=== PATIENT | female | born 1970 | race African-American/Black ===

== ENCOUNTER 2021-11-10 16:27 | Inpatient (IN) | payer OTHER ==
[~2021-11-10] VITALS: Ht 304.8 cm; Wt 37.2 kg
[2021-11-10 18:26] LABS: BASOPHILS % 0.4 % (0.0-2.0); EOSINOPHILS % 0.1 % (0.0-5.0); LYMPHOCYTES % 22.8 % (20.0-50.0); MEAN CORPUSCULAR HEMOGLOBIN 26.5 pg (28.0-32.0); MEAN CORPUSCULAR VOLUME 79.6 fL (81.0-99.0); MEAN PLATELET VOLUME 8.8 fl (7.4-10.4); MONOCYTES % 8.9 % (2.0-8.0); NEUTROPHILS % 67.8 % (40.0-76.0); PLATELET 240 x1000/uL (130-400); RED BLOOD CELL COUNT 2.03 mill/uL (4.2-5.4); RED CELL DISTRIBUTION WIDTH 20.5 % (11.6-14.6)
[2021-11-10 18:31] LABS: HEMATOCRIT. 16.2 % (36.0-48.0); HEMOGLOBIN. 5.4 g/dL (12.0-16.0)
[2021-11-10 18:32] LABS: CHLORIDE 105 mEq/L (98-107)
[2021-11-10 18:37] LABS: INR 1.6; PARTIAL THROMBOPLASTIN TIME 25.8 sec (23.4-31.0); PROTHROMBIN TIME 16.9 sec (9.6-11.0)
[2021-11-10 18:38] LABS: TOTAL IRON BINDING CAPACITY 421 ug/dL (250-450)
[2021-11-11 06:40] LABS: BASOPHILS % 1.2 % (0.0-2.0); EOSINOPHILS % 0.7 % (0.0-5.0); LYMPHOCYTES % 19.5 % (20.0-50.0); MEAN CORPUSCULAR HEMOGLOBIN 27.5 pg (28.0-32.0); MEAN CORPUSCULAR VOLUME 79.8 fL (81.0-99.0); MEAN PLATELET VOLUME 8.1 fl (7.4-10.4); MONOCYTES % 11.8 % (2.0-8.0); NEUTROPHILS % 66.8 % (40.0-76.0); PLATELET 190 x1000/uL (130-400); RED BLOOD CELL COUNT 2.22 mill/uL (4.2-5.4); RED CELL DISTRIBUTION WIDTH 17.9 % (11.6-14.6)
[2021-11-11 06:45] LABS: CHLORIDE 106 mEq/L (98-107)
[2021-11-11 06:51] LABS: TOTAL IRON BINDING CAPACITY 371 ug/dL (250-450)
[2021-11-11 07:08] LABS: HEMATOCRIT. 17.7 % (36.0-48.0); HEMOGLOBIN. 6.1 g/dL (12.0-16.0)
[2021-11-11 07:11] LABS: INR 1.4; PROTHROMBIN TIME 14.7 sec (9.6-11.0)
[2021-11-11] MEDS ORDERED: ACETAMINOPHEN 325MG TABLET PO PRN (08:30)
[2021-11-11] MEDS ORDERED: ONDANSETRON HCL 4MG/2ML INJ IV PRN (08:30)
[2021-11-11 12:00] VITALS: BP 154/52
[2021-11-11] MEDS ORDERED: WARF4TAB71 MT (13:39)
[2021-11-11 17:12] VITALS: BP 110/58
== END 2021-11-11 13:52 | disposition left against medical advice (07) | DRG 812 ==
LOC: ER 16:27 → MICUSO 20:12 → 6EST 11-11 11:41
PROVIDERS: ADMIT Internal Medicine; ATTEND Internal Medicine
PROC: 30233N1 Transfusion of Nonautologous Red Blood Cells into Peripheral Vein, Percutaneous Approach (ICD-10-PCS; principal; 2021-11-10)
DX: D64.9 Anemia, unspecified (principal); I42.9 Cardiomyopathy, unspecified; E87.1 Hypo-osmolality and hyponatremia; I10 Essential (primary) hypertension; Z20.822 Contact with and (suspected) exposure to COVID-19; Z53.29 Procedure and treatment not carried out because of patient's decision for other reasons; M32.9 Systemic lupus erythematosus, unspecified; Z95.2 Presence of prosthetic heart valve; Z79.01 Long term (current) use of anticoagulants; Z86.79 Personal history of other diseases of the circulatory system; Z98.891 History of uterine scar from previous surgery; Z90.710 Acquired absence of both cervix and uterus
CPT/HCPCS: 36415; 80048; 83540; 83550; 85025; 86850; 86870; 86900; 86920; 87426; 99285; P9016